=== PATIENT | male | born 1935 ===

== ENCOUNTER 2016-05-21 08:44 | Day surgery (SDC) | payer MEDICARE ==
[2015-07-19 11:21] VITALS: BMI 25.0
[2016-05-21] MEDS ORDERED: Propofol 10 mg/ml Inj (20 ML) ONE (09:21)
[2016-05-21] MEDS ORDERED: Lactated Ringer's 1,000 ML IV SCH (09:30)
[2016-05-21 10:55] VITALS: BP 156/86; PULSE 56; RESP 16; TEMP 97.8; O2SAT 99
== END 2016-05-21 11:16 | disposition home or self-care (01) ==
LOC: ENDO 08:44
PROVIDERS: ATTEND Specialist
DX: Z12.11 Encounter for screening for malignant neoplasm of colon (principal); K57.30 Diverticulosis of large intestine without perforation or abscess without bleeding; K64.8 Other hemorrhoids; I10 Essential (primary) hypertension; N40.0 Benign prostatic hyperplasia without lower urinary tract symptoms
CPT/HCPCS: 45378; J2001; J2704; J7040; J7120

== ENCOUNTER 2017-01-05 23:42 | Emergency (ER) | payer MEDICARE ==
[2017-01-05 23:42] VITALS: BMI 25.0
[2017-01-06 00:03] VITALS: TEMP 96.7
--- NOTE | 2017-01-06 00:36 | ED PDOC ---
Arrival/HPI - General Historian: Patient - History of Present Illness Time/Duration: 1 hour Symptom Onset: Other Symptom Course: Unchanged <Robby Guerrero - Last Filed: 01/06/17 03:10> <Mike Garcia - Last Filed: 01/06/17 10:05> - General Chief Complaint: High Blood Pressure Time Seen by Provider: 01/05/17 23:44 - History of Present Illness Narrative History of Present Illness (Text): This patient is an 81 year old male with PMHx of HTN and Asthma who presented with complaints of elevated blood pressure. Patient stated he took his blood pressure at home as he normally does everyday. He found his blood pressure to be 220/110. This blood pressure prompted him to come to the E.D. Patient is asymptomatic and has no complaints at this time. He denies any headache, dizziness, lightheadedness, vision changes, chest pain, palpitations, n/v/d, constipation, or urinary symptoms. Patient did complain bloating after eating and mild shortness of breath. He states that he takes is medications daily. He took is blood pressure medication (Nebivolol) about 6-7 hours prior to ED visit. ROS POSITIVE: N/A NEGATIVE: headache, dizziness, lightheadedness, vision changes, chest pain, palpitations, SOB, n/v/d, constipation, urinary symptoms PMHx: HTN, Asthma PSH: Cholecystectomy, Hernia Repair Allergies: Pollen Social Hx: Denies Tobacco or illicit drug use. Drinks alcohol socially Family Hx: Heart Disease (Mother and Brother) Medications: Nebivolol 10mg Daily 01/06/17 00:55 (Robby Guerrero) Past Medical History - Provider Review Nursing Documentation Reviewed: Yes - Infectious Disease Hx of Infectious Diseases: None - Tetanus Immunization Tetanus Immunization: Unknown - Cardiac Hx Hypertension: Yes Hx Pacemaker: No - Pulmonary Hx Respiratory Disorders: Yes Hx Asthma: Yes - Neurological Hx Neurological Disorder: No Hx Paralysis: No - HEENT Hx HEENT Disorder: Yes Hx Cataracts: Yes (right eye sx) - Renal Hx Renal Disorder: No - Endocrine/Metabolic Hx Endocrine Disorders: No - Hematological/Oncological Hx Blood Disorders: No Hx Blood Transfusions: No Hx Blood Transfusion Reaction: No - Integumentary Hx Dermatological Disorder: No - Musculoskeletal/Rheumatological Hx Musculoskeletal Disorders: No - Gastrointestinal Hx Gastrointestinal Disorders: No - Genitourinary/Gynecological Hx Genitourinary Disorders: No - Psychiatric Hx Psychophysiologic Disorder: No Hx Substance Use: No - Surgical History Hx Cholecystectomy: Yes - Anesthesia Hx Anesthesia Reactions: No Hx Malignant Hyperthermia: No - Suicidal Assessment Feels Threatened In Home Enviroment: No <Robby Guerrero - Last Filed: 01/06/17 03:10> <Mike Garcia - Last Filed: 01/06/17 10:05> - Patient History Narrative Patient History: HTN, Asthma (Robby Guerrero) Family/Social History - Physician Review Nursing Documentation Reviewed: Yes Family/Social History: CAD/[place] (Brother and Mother ) Smoking Status: Never Smoked Hx Alcohol Use: Yes (RARE) Frequency of alcohol use: Socially Hx Substance Use: No Hx Substance Use Treatment: No <Robby Guerrero - Last Filed: 01/06/17 03:10> Allergies/Home Meds <Robby Guerrero - Last Filed: 01/06/17 03:10> <Mike Garcia - Last Filed: 01/06/17 10:05> Allergies/Adverse Reactions: Allergies seasonal allergies Allergy (Severe, Uncoded 01/05/17 23:58) CONGESTION Home Medications: Home Meds Medication Instructions Recorded Confirmed Nebivolol [Bystolic] 10 mg PO DAILY 01/05/17 01/05/17 Review of Systems - Physician Review All systems were reviewed & negative as marked: Yes - Review of Systems Constitutional: Normal Respiratory: Normal Cardiovascular: Normal <Robby Guerrero - Last Filed: 01/06/17 03:10> Physical Exam Vital Signs Reviewed: Yes Temperature: Afebrile Blood Pressure: Hypertensive - Systems Exam Head: Present: Atraumatic, Normocephalic Extroacular Muscles: Present: EOMI Conjunctiva: Present: Normal Mouth: Present: Moist Mucous Membranes Neck: No: JVD, Bruit Respiratory/Chest: Present: Clear to Auscultation, Good Air Exchange. No: Respiratory Distress, Accessory Muscle Use, Wheezes, Rales, Retracting, Rhonchi , Tachypneic Cardiovascular: Present: Regular Rate and Rhythm, Normal S1, S2. No: Murmurs Abdomen: Present: Normal Bowel Sounds. No: Tenderness, Distention, Guarding, Mass/Organomegaly Upper Extremity: Present: Capillary Refill < 2s Neurological: Present: Speech Normal Psychiatric: Present: Alert, Oriented x 3 <Robby Guerrero - Last Filed: 01/06/17 03:10> Vital Signs Temp Pulse Resp BP Pulse Ox 01/06/17 02:02 55 L 17 143/71 97 01/06/17 01:55 57 L 129/78 01/06/17 01:50 57 L 18 129/78 97 01/06/17 01:10 57 L 18 184/98 H 97 01/06/17 00:32 67 210/108 H 01/05/17 23:59 96.7 F L 62 18 210/108 H 98 Medical Decision Making <Robby Guerrero - Last Filed: 01/06/17 03:10> <Mike Garcia - Last Filed: 01/06/17 10:05> ED Course and Treatment: Elevated BP Clonidine 0.2mg PO CBC CMP EKG Reassess Norvasc 5 PO. We will give 2 weeks supply. 01/06/17 01:27 (Robby Guerrero) Impression: Pt seen and evaluated with manager of medical. Pt, whose past medical history includes hypertension and asthma, presented for high blood pressure. States he took his blood pressure at home and noted it to be elevated. Pt denies any complaints, asymptomatic currently. Aware and agree with HPI, clinical findings , plan, and management. Plan: -- Reassess and disposition (Mike Garcia) - Lab Interpretations Lab Results: 01/06/17 01:30 01/06/17 01:30 Lab Results 01/06/17 01:30: Sodium 139, Potassium 3.7, Chloride 105, Carbon Dioxide 29, Anion Gap 8 L, BUN 25 H, Creatinine 0.9, Est GFR ( Amer) > 60, Est GFR ( Non-Af Amer) > 60, Random Glucose 109, Calcium 8.7, Total Bilirubin 0.7, AST 51 , ALT 84 H, Alkaline Phosphatase 55, Total Protein 6.6, Albumin 3.6, Globulin 3.0, Albumin/Globulin Ratio 1.2 01/06/17 01:30: WBC 6.0 D, RBC 4.28, Hgb 13.7 L, Hct 40.9 L, MCV 95.6, MCH 32.0 , MCHC 33.5, RDW 13.5, Plt Count 128, MPV 13.1 H, Gran % 51.6, Lymph % (Auto) 33.1, [place] % (Auto) 8.7 H, Eos % (Auto) 6.4 H, Baso % (Auto) 0.2, Gran # 3.09, Lymph # 2.0, [place] # 0.5, Eos # 0.4, Baso # 0.01 - Medication Orders Current Medication Orders: Discontinued Medications Amlodipine Besylate (Norvasc) 5 mg PO STAT STA Stop: 01/06/17 01:25 Last Admin: 01/06/17 01:55 Dose: MAR Pulse and Blood Pressure Document 01/06/17 01:55 [facility] (Rec: 01/06/17 01:55 [facility] [id number]) Pulse Pulse Rate (60-90) 57 Blood Pressure Blood Pressure (100/60-150/90) 129/78 Clonidine HCl (Catapres) 0.2 mg PO STAT STA Stop: 01/06/17 00:18 Last Admin: 01/06/17 00:32 Dose: 0.2 mg MAR Pulse and Blood Pressure Document 01/06/17 00:32 SMA (Rec: 01/06/17 00:32 [facility] [id number]) Pulse Pulse Rate (60-90) 67 Blood Pressure Blood Pressure (100/60-150/90) 210/108 - PA / GEAR REPAIRER / Resident Statement / has reviewed & agrees with the documentation as recorded. / has examined the patient and agrees with the treatment plan. <Mike Garcia - Last Filed: 01/06/17 10:05> Disposition/Present on Arrival - Present on Arrival Any Indicators Present on Arrival: No History of DVT/PE: No History of Uncontrolled Diabetes: No Urinary Catheter: No History of Decub. Ulcer: No History Surgical Site Infection Following: None - Disposition Have Diagnosis and Disposition been Completed?: Yes Disposition Time: 02:10 <Robby Guerrero - Last Filed: 01/06/17 03:10> <Mike Garcia - Last Filed: 01/06/17 10:05> - Disposition Diagnosis: Uncontrolled hypertension Disposition: HOME/ ROUTINE Condition: STABLE Discharge Instructions (ExitCare): Hypertensive Crisis (ED) Additional Instructions: Please follow up with your primary medical physician within 2 weeks. Prescriptions: amLODIPine [Norvasc] 5 mg PO DAILY #14 tab Referrals: Ugenie Sima Req, [Non-Staff] - Follow up with primary Forms: [employer] (Pashto)
[2017-01-06 01:12] VITALS: O2SAT 97
[2017-01-06 01:57] LABS: BASO # 0.01 K/mm3 (0.0-2.0); BASO % 0.2 % (0.0-3.0); EOS # 0.4 (0.0-0.7); EOS % 6.4 % (1.5-5.0); GRAN # 3.09 (1.4-6.5); GRAN % 51.6 % (50.0-68.0); HEMATOCRIT 40.9 % (42.0-52.0); LYMPH % 33.1 % (22.0-35.0); MEAN CELL VOLUME 95.6 fl (80.0-105.0); MEAN CORPUSCULAR HGB CONC 33.5 g/dl (31.0-37.0); MEAN PLATELET VOLUME 13.1 fl (7.0-11.0); MONO # 0.5 (0.1-0.6); MONO % 8.7 % (1.0-6.0); RED CELL DISTRIBUTION WIDTH 13.5 % (11.5-14.5)
[2017-01-06 02:03] VITALS: BP 143/71; PULSE 55; RESP 17
[2017-01-06 02:03] LABS: ALB/GLOB RATIO 1.2 (1.1-1.8); ALKALINE PHOSPHATASE 55 U/L (38-126); ALT/SGPT 84 U/L (7-56); AST/SGOT 51 U/L (17-59); BILIRUBIN,TOTAL 0.7 mg/dL (0.2-1.3); BLOOD UREA NITROGEN 25 mg/dL (7-21); CALCIUM 8.7 mg/dL (8.4-10.5); CARBON DIOXIDE 29 mmol/L (21-33); CHLORIDE 105 mmol/L (98-107); GFR AFRICAN-AMERICAN > 60; GLUCOSE,RANDOM 109 mg/dL (70-110); POTASSIUM 3.7 mmol/L (3.6-5.0); SODIUM 139 mmol/L (132-148); TOTAL PROTEIN 6.6 g/dL (5.8-8.3)
--- NOTE | 2017-01-06 10:27 | CARD ---
APPROVED REPORT EKG Measurement Heart [id number] <Conclusion> Sinus bradycardia with sinus arrhythmia Moderate voltage criteria for LVH, may be normal variant RVCD LAD No change except the rate is slower
== END 2017-01-06 02:16 | disposition home or self-care (01) ==
LOC: ED 23:42
DX: I10 Essential (primary) hypertension (principal)

== ENCOUNTER 2017-01-09 14:25 | Emergency (ER) | payer MEDICARE ==
[2017-01-09 15:03] VITALS: BMI 24.3
== END 2017-01-09 21:47 | disposition left against medical advice (07) ==
LOC: ED 14:25
DX: Z02.89 Encounter for other administrative examinations (principal); I10 Essential (primary) hypertension

== ENCOUNTER 2017-05-27 08:30 | Day surgery (SDC) | payer MEDICARE ==
[2017-05-19 13:56] VITALS: BMI 25.6
[2017-05-27] MEDS ORDERED: Propofol 10 mg/ml Inj (20 ML) ONE (10:03)
[2017-05-27] MEDS ORDERED: Sodium Chloride 0.9% 1,000 ML IV SCH (11:15)
[2017-05-27 11:50] VITALS: RESP 16
[2017-05-27 12:37] VITALS: PULSE 52; TEMP 97.8
[2017-05-27 12:38] VITALS: BP 116/55; O2SAT 98
== END 2017-05-27 13:50 | disposition home or self-care (01) ==
LOC: ENDO 08:30
PROVIDERS: ATTEND Specialist
DX: K21.0 Gastro-esophageal reflux disease with esophagitis (principal); K29.50 Unspecified chronic gastritis without bleeding; K44.9 Diaphragmatic hernia without obstruction or gangrene; R10.13 Epigastric pain; I10 Essential (primary) hypertension; N40.0 Benign prostatic hyperplasia without lower urinary tract symptoms
CPT/HCPCS: 43239; 88305; 88312; 88342; J2704; J7040 ×2

== ENCOUNTER 2017-09-25 20:49 | Emergency (ER) | payer MEDICARE ==
[2017-09-25 21:14] VITALS: BMI 23.5
--- NOTE | 2017-09-25 21:24 | ED PDOC ---
Arrival/HPI - General Chief Complaint: High Blood Pressure Time Seen by Provider: 09/25/17 21:14 Historian: Patient, Spouse - History of Present Illness Narrative History of Present Illness (Text): 09/25/17 21:24 An 82 year old male, whose past medical history includes hypertension, presents to the emergency department accompanied with his spouse, complaining of high blood pressure. Patient reports he measured blood pressure twice at home and both results were 170/110. Patients current medication is HCTZ, Aliskiren, and Amlodipine. Patient reports no pain at this time. Patients spouse reports the patient has not had a healthy diet in the past few days. Patient denies any fever, chills, chest pain, shortness of breath, nausea, vomiting, diarrhea, urinary symptoms, back pain, neck pain, headache, dizziness, or any other complaints. No PMD Time/Duration: Other (earlier today) Symptom Course: Unchanged Activities at Onset: Light Context: Home Past Medical History - Provider Review Nursing Documentation Reviewed: Yes - Travel History If Yes, travel location?: [place] - Infectious Disease Hx of Infectious Diseases: None - Tetanus Immunization Tetanus Immunization: Unknown - Cardiac Hx Cardiac Disorders: Yes Hx Hypertension: Yes Hx Pacemaker: No - Pulmonary Hx Respiratory Disorders: Yes Hx Asthma: Yes - Neurological Hx Paralysis: No - HEENT Hx HEENT Disorder: Yes Hx Cataracts: Yes (right eye sx) - Renal Hx Renal Disorder: No - Endocrine/Metabolic Hx Endocrine Disorders: No - Hematological/Oncological Hx Blood Disorders: No Hx Blood Transfusions: No Hx Blood Transfusion Reaction: No - Integumentary Hx Dermatological Disorder: No - Musculoskeletal/Rheumatological Hx Musculoskeletal Disorders: No - Gastrointestinal Hx Gastrointestinal Disorders: Yes Hx Colostomy: Yes - Genitourinary/Gynecological Hx Genitourinary Disorders: No - Psychiatric Hx Psychophysiologic Disorder: No Hx Emotional Abuse: No Hx Physical Abuse: No Hx Substance Use: No - Surgical History Hx Cholecystectomy: Yes - Anesthesia Hx Anesthesia: Yes Hx Anesthesia Reactions: No Hx Malignant Hyperthermia: No - Suicidal Assessment Feels Threatened In Home Enviroment: No Family/Social History - Physician Review Nursing Documentation Reviewed: Yes Family/Social History: Unknown Family HX Smoking Status: Never Smoked Hx Alcohol Use: No Hx Substance Use: No Hx Substance Use Treatment: No Allergies/Home Meds Allergies/Adverse Reactions: Allergies seasonal allergies Allergy (Severe, Uncoded 05/19/17 13:56) CONGESTION Home Medications: Home Meds Medication Instructions Recorded Confirmed Azilsartan Med/Chlorthalidone 1 tab PO QAM 05/19/17 05/27/17 [Edarbyclor 40 mg-12.5 mg] Omeprazole 40 mg PO DAILY 05/27/17 05/27/17 Review of Systems - Physician Review All systems were reviewed & negative as marked: Yes - Review of Systems Constitutional: Normal. absent: Fevers, Night Sweats Eyes: Normal ENT: Normal Respiratory: Normal. absent: SOB Cardiovascular: Normal. absent: Chest Pain Gastrointestinal: Normal. absent: Diarrhea, Nausea Genitourinary Male: Normal. absent: Urinary Output Changes Musculoskeletal: Normal. absent: Back Pain, Neck Pain Skin: Normal Neurological: Normal. absent: Headache, Dizziness Endocrine: Normal Hemo/Lymphatic: Normal Psychiatric: Normal Physical Exam Vital Signs Reviewed: Yes Vital Signs Temp Pulse Resp BP Pulse Ox 09/25/17 23:41 72 16 153/76 H 100 09/25/17 22:24 65 141/62 09/25/17 21:09 97.9 F 70 17 178/91 H 98 Temperature: Afebrile Blood Pressure: Hypertensive Pulse: Regular Respiratory Rate: Normal Appearance: Positive for: Well-Appearing, Non-Toxic, Comfortable Pain Distress: None Mental Status: Positive for: Alert and Oriented X 3 - Systems Exam Head: Present: Atraumatic, Normocephalic Pupils: Present: PERRL Extroacular Muscles: Present: EOMI Conjunctiva: Present: Normal Mouth: Present: Moist Mucous Membranes Neck: Present: Normal Range of Motion Respiratory/Chest: Present: Clear to Auscultation, Good Air Exchange. No: Respiratory Distress, Accessory Muscle Use Cardiovascular: Present: Regular Rate and Rhythm, Normal S1, S2. No: Murmurs Abdomen: No: Tenderness, Distention, Peritoneal Signs Back: Present: Normal Inspection Upper Extremity: Present: Normal Inspection. No: Cyanosis, Edema Lower Extremity: Present: Normal Inspection. No: Edema Neurological: Present: GCS=15, CN II-XII Intact, Speech Normal Skin: Present: Warm, Dry, Normal Color. No: Rashes Psychiatric: Present: Alert, Oriented x 3, Normal Insight, Normal Concentration Medical Decision Making ED Course and Treatment: 09/25/17 21:29 Impression: 30 year old male presenting to the Emergency department complaining of high blood pressure. Plan: -- Labs -- EKG -- CBC -- COAG -- Chest X-ray -- Lopressor -- Urinalysis -- Reassess and disposition Prior Visits: Notes and results from previous visits were reviewed. Patient was last seen in the emergency department on 03/21/17 complaining of high blood pressure and was discharged when symptoms improved. Progress Notes: 09/25/17 22:00 EKG reviewed by me, shows normal sinus rhythm with sinus arrhythmia and moderate voltage criteria for LVH, may be normal variant. - Lab Interpretations Lab Results: 09/25/17 22:04 09/25/17 22:04 Lab Results 09/25/17 22:04: Sodium 143, Potassium 3.6, Chloride 100, Carbon Dioxide 32, Anion Gap 14, BUN 29 H, Creatinine 0.9, Est GFR ( Amer) > 60, Est GFR ( Non-Af Amer) > 60, Random Glucose 101, Calcium 9.2, Phosphorus 3.5, Magnesium 1.9, Total Bilirubin 0.6, AST 31, ALT 26, Alkaline Phosphatase 61, Lactate Dehydrogenase 470, Total Creatine Kinase 122, Troponin I < 0.01, Total Protein 7.7, Albumin 4.1, Globulin 3.7, Albumin/Globulin Ratio 1.1 09/25/17 22:04: PT 11.8, INR 1.03 09/25/17 22:04: WBC 5.2, RBC 4.49, Hgb 14.3, Hct 42.7, MCV 95.1, MCH 31.8, MCHC 33.5, RDW 13.3, Plt Count 160, MPV 12.4 H, Gran % 43.2 L, Lymph % (Auto) 37.4 H , [place] % (Auto) 10.7 H, Eos % (Auto) 8.5 H, Baso % (Auto) 0.2, Gran # 2.23, Lymph # (Auto) 1.9, [place] # (Auto) 0.6, Eos # (Auto) 0.4, Baso # (Auto) 0.01 - RAD Interpretation Radiology Orders: 09/25/17 21:24 CHEST PORTABLE [RAD] Stat - Medication Orders Current Medication Orders: Discontinued Medications Metoprolol Tartrate (Lopressor) 25 mg PO STAT STA Stop: 08/10/18 21:30 Last Admin: 09/25/17 22:24 Dose: 25 mg MAR Pulse and Blood Pressure Document 09/25/17 22:24 IT (Rec: 09/25/17 22:24 IT [id number]) Pulse Pulse Rate (60-90) 65 Blood Pressure Blood Pressure (100/60-150/90) 141/62 - Scribe Statement The provider has reviewed the documentation as recorded by the Sera Magallanes All medical record entries made by the Catrachitoibjennifer were at my direction and personally dictated by me. I have reviewed the chart and agree that the record accurately reflects my personal performance of the history, physical exam, medical decision making, and the department course for this patient. I have also personally directed, reviewed, and agree with the discharge instructions and disposition. Disposition/Present on Arrival - Present on Arrival Any Indicators Present on Arrival: No History of DVT/PE: No History of Uncontrolled Diabetes: No Urinary Catheter: No History of Decub. Ulcer: No History Surgical Site Infection Following: None - Disposition Have Diagnosis and Disposition been Completed?: Yes Diagnosis: Hypertension, Salt craving Disposition: HOME/ ROUTINE Disposition Time: 23:44 Patient Plan: Discharge Condition: GOOD Discharge Instructions (ExitCare): Controlling Your Blood Pressure Through Lifestyle, High Blood Pressure (DC) Additional Instructions: Mr Haskins - You can not eat all that salt and expect your BP medication to work. No More Chips, Cheese, or other salt heavy foods. See your doctor on thursday. Return to us if any problems. Forms: [employer] Information ([place])
[2017-09-25 22:24] LABS: BASO # 0.01 K/mm3 (0.0-2.0); BASO % 0.2 % (0.0-3.0); EOS # 0.4 (0.0-0.7); EOS % 8.5 % (1.5-5.0); GRAN # 2.23 (1.4-6.5); GRAN % 43.2 % (50.0-68.0); HEMOGLOBIN 14.3 g/dL (14.0-18.0); LYMPH # 1.9 (1.2-3.4); LYMPH % 37.4 % (22.0-35.0); MEAN CELL VOLUME 95.1 fl (80.0-105.0); MEAN CORPUSCULAR HEMOGLOBIN 31.8 pg (25.0-35.0); MEAN CORPUSCULAR HGB CONC 33.5 g/dl (31.0-37.0); MEAN PLATELET VOLUME 12.4 fl (7.0-11.0); MONO # 0.6 (0.1-0.6); MONO % 10.7 % (1.0-6.0); RBC 4.49 10^6/uL (3.5-6.1); RED CELL DISTRIBUTION WIDTH 13.3 % (11.5-14.5); WHITE BLOOD COUNT 5.2 10^3/ul (4.5-11.0)
[2017-09-25 22:35] LABS: ALB/GLOB RATIO 1.1 (1.1-1.8); ALBUMIN 4.1 g/dL (3.0-4.8); ALT/SGPT 26 U/L (7-56); AST/SGOT 31 U/L (17-59); BLOOD UREA NITROGEN 29 mg/dL (7-21); CALCIUM 9.2 mg/dL (8.4-10.5); GFR AFRICAN-AMERICAN > 60; GFR NON-AFRICAN AMERICAN > 60
[2017-09-25 22:37] LABS: INR 1.03; PROTHROMBIN TIME 11.8 SECONDS (9.4-12.5)
[2017-09-25 22:50] LABS: TROPONIN I < 0.01 ng/mL
[2017-09-25 23:42] VITALS: BP 153/76; PULSE 72; RESP 16; O2SAT 100
[2017-09-26 00:35] VITALS: TEMP 98
--- NOTE | 2017-09-26 12:28 | CARD ---
APPROVED REPORT Date of service: 09/25/2017 EKG Measurement Heart [id number] [id number] <Conclusion> Normal sinus rhythm with sinus arrhythmia Moderate voltage criteria for LVH, may be normal variant Nonspecific ST abnormality Abnormal ECG
--- NOTE | 2017-09-26 13:16 | RAD ---
Date of service: 09/25/2017 HISTORY: Uncontrolled Hypertension COMPARISON: Comparison chest 07/19/2015 FINDINGS: LUNGS: No active pulmonary disease. PLEURA: No significant pleural effusion identified, no pneumothorax apparent. CARDIOVASCULAR: Normal. OSSEOUS STRUCTURES: No significant abnormalities. VISUALIZED UPPER ABDOMEN: Normal. OTHER FINDINGS: None. IMPRESSION: No active disease.
== END 2017-09-26 00:35 | disposition home or self-care (01) ==
LOC: ED 20:49
DX: I10 Essential (primary) hypertension (principal); J45.909 Unspecified asthma, uncomplicated; Z93.3 Colostomy status

== ENCOUNTER 2017-11-13 18:20 | Emergency (ER) | payer MEDICARE ==
[2017-11-13 18:21] VITALS: BMI 23.5
[2017-11-13 18:51] VITALS: RESP 18
--- NOTE | 2017-11-13 19:16 | ED PDOC ---
Arrival/HPI - General Chief Complaint: High Blood Pressure Time Seen by Provider: 11/13/17 18:51 Historian: Patient - History of Present Illness Narrative History of Present Illness (Text): 11/13/17 19:13 82 year old male, whose past medical history includes hypertension and asthma, presents to the emergency department for evaluation of high blood pressure. Patient states he was in [place] 2 weeks ago, and started feeling unwell. Patient was seen there in the hospital where he was diagnosed with hypertension and placed on Azilsartan. Patient came home 2 days ago, and was asked to follow up with PMD. Patient states he was unable to get an appointment with Dr. Ellis, so he came to the emergency department for evaluation when his blood pressure was 197/108. Patient is a never smoker, occasional drinker. Patient denies any headache, dizziness, palpitations, shortness of breath, abdominal pain, nausea, vomiting, or any other complaints. Patient's blood pressure is now 151/101. Time/Duration: Prior to Arrival Past Medical History - Provider Review Nursing Documentation Reviewed: Yes - Infectious Disease Hx of Infectious Diseases: None - Tetanus Immunization Tetanus Immunization: Unknown - Cardiac Hx Cardiac Disorders: Yes Hx Hypertension: Yes - Pulmonary Hx Respiratory Disorders: Yes Hx Asthma: Yes - Neurological Hx Paralysis: No - HEENT Hx HEENT Disorder: Yes Hx Cataracts: Yes (right eye sx) - Renal Hx Renal Disorder: No - Endocrine/Metabolic Hx Endocrine Disorders: No - Hematological/Oncological Hx Blood Disorders: No - Integumentary Hx Dermatological Disorder: No - Musculoskeletal/Rheumatological Hx Musculoskeletal Disorders: No - Gastrointestinal Hx Gastrointestinal Disorders: Yes Hx Colostomy: Yes - Genitourinary/Gynecological Hx Genitourinary Disorders: No - Psychiatric Hx Psychophysiologic Disorder: No Hx Substance Use: No - Surgical History Hx Cholecystectomy: Yes - Anesthesia Hx Anesthesia: Yes Hx Anesthesia Reactions: No Hx Malignant Hyperthermia: No - Suicidal Assessment Feels Threatened In Home Enviroment: No Family/Social History - Physician Review Nursing Documentation Reviewed: Yes Family/Social History: No Known Family HX Smoking Status: Never Smoked Hx Alcohol Use: No Hx Substance Use: No Hx Substance Use Treatment: No Allergies/Home Meds Allergies/Adverse Reactions: Allergies seasonal allergies Allergy (Severe, Uncoded 11/13/17 18:51) CONGESTION Home Medications: Home Meds Medication Instructions Recorded Confirmed Azilsartan Med/Chlorthalidone 1 tab PO QAM 05/19/17 11/13/17 [Edarbyclor 40 mg-12.5 mg] Review of Systems - Physician Review All systems were reviewed & negative as marked: Yes - Review of Systems Respiratory: absent: SOB Cardiovascular: absent: Chest Pain, Palpitations, Syncope Gastrointestinal: absent: Abdominal Pain, Nausea, Vomiting Neurological: absent: Headache, Dizziness, Focal Weakness Physical Exam Vital Signs Reviewed: Yes Vital Signs Temp Pulse Resp BP Pulse Ox 11/13/17 18:49 97.7 F 76 18 133/99 H 95 Temperature: Afebrile Blood Pressure: Hypertensive Pulse: Regular Respiratory Rate: Normal Appearance: Positive for: Well-Appearing, Non-Toxic, Comfortable Pain Distress: None Mental Status: Positive for: Alert and Oriented X 3 - Systems Exam Head: Present: Atraumatic, Normocephalic Pupils: Present: PERRL Extroacular Muscles: Present: EOMI Conjunctiva: Present: Normal Mouth: Present: Moist Mucous Membranes Neck: Present: Normal Range of Motion Respiratory/Chest: Present: Clear to Auscultation, Good Air Exchange. No: Respiratory Distress, Accessory Muscle Use Cardiovascular: Present: Regular Rate and Rhythm, Normal S1, S2. No: Murmurs Abdomen: No: Tenderness, Distention, Peritoneal Signs Back: Present: Normal Inspection Upper Extremity: Present: Normal Inspection. No: Cyanosis, Edema Lower Extremity: Present: Normal Inspection. No: Edema Neurological: Present: GCS=15, CN II-XII Intact, Speech Normal Skin: Present: Warm, Dry, Normal Color. No: Rashes Psychiatric: Present: Alert, Oriented x 3, Normal Insight, Normal Concentration Medical Decision Making ED Course and Treatment: 11/13/17 19:25 Impression: 82 year old male presents for evaluation of hypertension Plan: -- Catapres -- Reassess and disposition Prior Visits: Notes and results from previous visits were reviewed. Progress Notes: 11/13/17 19:30 Patient blood pressure is now 148/82. 11/13/17 19:32 Patient is asymptomatic. His blood pressure is very mildly elevated at this time. Discussed in detail with his and the patient that he will need follow-up with his PMD for any change in his blood pressure medication. Follow up in the ER if symptomatic. - Medication Orders Current Medication Orders: Discontinued Medications Clonidine HCl (Catapres) 0.1 mg PO STAT STA Stop: 11/13/17 19:08 - Scribe Statement The provider has reviewed the documentation as recorded by the Sera Le Provider Catrachitoibe Attestation: All medical record entries made by the Scribe were at my direction and personally dictated by me. I have reviewed the chart and agree that the record accurately reflects my personal performance of the history, physical exam, medical decision making, and the department course for this patient. I have also personally directed, reviewed, and agree with the discharge instructions and disposition. Disposition/Present on Arrival - Present on Arrival Any Indicators Present on Arrival: No History of DVT/PE: No History of Uncontrolled Diabetes: No Urinary Catheter: No History of Decub. Ulcer: No History Surgical Site Infection Following: None - Disposition Have Diagnosis and Disposition been Completed?: Yes Diagnosis: Hypertension Disposition: HOME/ ROUTINE Disposition Time: 19:33 Patient Plan: Discharge Condition: GOOD Discharge Instructions (ExitCare): High Blood Pressure in Adults Additional Instructions: Continue current medication. Follow-up with PMD. Follow up in ER as needed. Referrals: Ronan Ellis MD [Primary Care Provider] - Follow up with primary Forms: [employer] ([place])
[2017-11-13 19:56] VITALS: BP 148/82
[2017-11-13 19:57] VITALS: PULSE 71; TEMP 97.8; O2SAT 96
== END 2017-11-13 19:40 | disposition home or self-care (01) ==
LOC: ED 18:20
DX: I10 Essential (primary) hypertension (principal)

== ENCOUNTER 2017-12-03 19:03 | Emergency (ER) | payer MEDICARE ==
[2017-12-03 19:09] VITALS: BMI 23.9
[2017-12-03 19:12] VITALS: TEMP 97.6
--- NOTE | 2017-12-03 20:01 | ED PDOC ---
Arrival/HPI - General Chief Complaint: High Blood Pressure Time Seen by Provider: 12/03/17 19:43 Historian: Patient, Spouse - History of Present Illness Narrative History of Present Illness (Text): 12/03/17 20:25 A 82 year old male, whose past medical history includes hypertension, presents to the emergency department accompanied by his complaining of elevated blood pressure since earlier today. Patient reports he went to primary care doctor 3 days ago and was prescribed a new medication for high blood pressure called edarbyclor. Patient's reports patient was diagnosed with high blood pressure last month in [place] and was also in the emergency room on Nov 13 for High Blood Pressure. Patient denies feeling any current pain and admit going to ER for evaluation. Patient reports he has an appointment with his doctor tomorrow at 9 am. Patient denies any fever, chills, shortness of breath, chest pain, diarrhea, nausea, vomiting, urinary symptoms, back pain, neck pain, headache, dizziness, or any other complaints. PMD: Dr. Ellis Time/Duration: 4-6 hours (earlier today) Symptom Onset: Gradual Symptom Course: Improving Activities at Onset: Light Context: Home Past Medical History - Provider Review Nursing Documentation Reviewed: Yes - Infectious Disease Hx of Infectious Diseases: None - Tetanus Immunization Tetanus Immunization: Unknown - Cardiac Hx Cardiac Disorders: Yes Hx Hypertension: Yes - Pulmonary Hx Respiratory Disorders: Yes Hx Asthma: Yes - Neurological Hx Paralysis: No - HEENT Hx HEENT Disorder: Yes Hx Cataracts: Yes (right eye sx) - Renal Hx Renal Disorder: No - Endocrine/Metabolic Hx Endocrine Disorders: No - Hematological/Oncological Hx Blood Disorders: No - Integumentary Hx Dermatological Disorder: No - Musculoskeletal/Rheumatological Hx Musculoskeletal Disorders: No - Gastrointestinal Hx Gastrointestinal Disorders: Yes Hx Colostomy: Yes - Genitourinary/Gynecological Hx Genitourinary Disorders: No - Psychiatric Hx Psychophysiologic Disorder: No Hx Substance Use: No - Surgical History Hx Cholecystectomy: Yes - Anesthesia Hx Anesthesia: Yes Hx Anesthesia Reactions: No Hx Malignant Hyperthermia: No - Suicidal Assessment Feels Threatened In Home Enviroment: No Family/Social History - Physician Review Nursing Documentation Reviewed: Yes Family/Social History: Unknown Family HX Smoking Status: Never Smoked Hx Alcohol Use: No Hx Substance Use: No Hx Substance Use Treatment: No Allergies/Home Meds Allergies/Adverse Reactions: Allergies seasonal allergies Allergy (Severe, Uncoded 11/13/17 18:51) CONGESTION Home Medications: Home Meds Medication Instructions Recorded Confirmed Azilsartan Med/Chlorthalidone 1 tab PO QAM 05/19/17 12/03/17 [Edarbyclor 40 mg-12.5 mg] Review of Systems - Physician Review All systems were reviewed & negative as marked: Yes - Review of Systems Constitutional: absent: Fevers, Night Sweats Respiratory: absent: SOB Cardiovascular: absent: Chest Pain Gastrointestinal: absent: Diarrhea, Nausea, Vomiting Genitourinary Male: absent: Urinary Output Changes Musculoskeletal: absent: Back Pain, Neck Pain Neurological: absent: Headache, Dizziness Physical Exam Vital Signs Reviewed: Yes Vital Signs Temp Pulse Resp BP Pulse Ox 12/03/17 19:49 70 168/78 H 12/03/17 19:12 202/94 H 12/03/17 19:11 97.6 F 77 18 208/96 H 98 Temperature: Afebrile Blood Pressure: Hypertensive Pulse: Regular Respiratory Rate: Normal Appearance: Positive for: Well-Appearing, Non-Toxic, Comfortable Pain Distress: None Mental Status: Positive for: Alert and Oriented X 3 - Systems Exam Head: Present: Atraumatic, Normocephalic Pupils: Present: PERRL Extroacular Muscles: Present: EOMI Conjunctiva: Present: Normal Mouth: Present: Moist Mucous Membranes Neck: Present: Normal Range of Motion Respiratory/Chest: Present: Clear to Auscultation, Good Air Exchange. No: Respiratory Distress, Accessory Muscle Use Cardiovascular: Present: Regular Rate and Rhythm, Normal S1, S2. No: Murmurs Abdomen: No: Tenderness, Distention, Peritoneal Signs Back: Present: Normal Inspection Upper Extremity: Present: Normal Inspection. No: Cyanosis, Edema Lower Extremity: Present: Normal Inspection. No: Edema Neurological: Present: GCS=15, CN II-XII Intact, Speech Normal Skin: Present: Warm, Dry, Normal Color. No: Rashes Psychiatric: Present: Alert, Oriented x 3, Normal Insight, Normal Concentration Medical Decision Making ED Course and Treatment: 12/04/17 20:23 Impression: 82 year old male presenting to the emergency department for elevated blood pressure. Plan: -- EKG -- Reassess and disposition Prior Visits: Notes and results from previous visits were reviewed. Patient was last seen in the emergency department on 11/13/18 for high blood pressure and was discharged when symptoms improved. Progress Notes: 12/04/17 20:25 EKG: Ordered, reviewed, and independently interpreted the EKG. Rate : 74 BPM Rhythm : NSR Interpretation : LVH, No ST-segment elevations or depressions, no T-wave inversions, normal intervals. - Scribe Statement The provider has reviewed the documentation as recorded by the Scribe Shelby Magallanes All medical record entries made by the Scribe were at my direction and personally dictated by me. I have reviewed the chart and agree that the record accurately reflects my personal performance of the history, physical exam, medical decision making, and the department course for this patient. I have also personally directed, reviewed, and agree with the discharge instructions and disposition. Disposition/Present on Arrival - Present on Arrival Any Indicators Present on Arrival: No History of DVT/PE: No History of Uncontrolled Diabetes: No Urinary Catheter: No History of Decub. Ulcer: No History Surgical Site Infection Following: None - Disposition Have Diagnosis and Disposition been Completed?: Yes Diagnosis: Hypertension, poor control Disposition: HOME/ ROUTINE Disposition Time: 20:30 Patient Plan: Discharge Condition: STABLE Discharge Instructions (ExitCare): High Blood Pressure (DC) Additional Instructions: JORGE ASHER, thank you for letting us take care of you today. Your provider was Melony Peck MD and you were treated for HIGH BLOOD PRESSURE. Blood pressure at time of discharge is 157/79. The emergency medical care you received today was directed at your acute symptoms. Return to the Emergency Department if your symptoms worsen, do not improve, or if you have any other problems. Please go to your appointment with your doctor tomorrow, December 04, at 9 am as previously scheduled. Bring any paperwork you were given at discharge with you along with any medications you are taking to your follow up visit. Our treatment cannot replace ongoing medical care by a primary care provider outside of the emergency department. Thank you for allowing the [facility] team to be part of your care today. Referrals: Ronan Ellis MD [Family Provider] - Follow up with primary Forms: [employer] ([employer])
[2017-12-03 20:30] VITALS: BP 157/79; PULSE 72; O2SAT 100
[2017-12-03 21:07] VITALS: RESP 16
--- NOTE | 2017-12-04 09:41 | CARD ---
APPROVED REPORT Date of service: 12/03/2017 EKG Measurement Heart [id number] <Conclusion> Sinus rhythm with marked sinus arrhythmia Moderate voltage criteria for LVH, may be normal variant Nonspecific ST abnormality Abnormal ECG
== END 2017-12-03 20:55 | disposition home or self-care (01) ==
LOC: ED 19:03
DX: I10 Essential (primary) hypertension (principal)